=== PATIENT | male | born 1945 | race Caucasian/White ===

== ENCOUNTER → 2020-05-30 | Outpatient (CLI) | payer MEDICARE, OTHER | LOC: WOUNDCARE 08:55 | PROVIDERS: ATTEND Surgery | DX: I87.332 Chronic venous hypertension (idiopathic) with ulcer and inflammation of left lower extremity (principal); I89.0 Lymphedema, not elsewhere classified; I96 Gangrene, not elsewhere classified; I70.242 Atherosclerosis of native arteries of left leg with ulceration of calf; L97.221 Non-pressure chronic ulcer of left calf limited to breakdown of skin | CPT/HCPCS: 99204 ==

== ENCOUNTER → 2020-06-08 | Outpatient (CLI) | payer MEDICARE, OTHER | LOC: WOUNDCARE 09:30 | PROVIDERS: ATTEND Surgery | DX: I87.332 Chronic venous hypertension (idiopathic) with ulcer and inflammation of left lower extremity (principal); I89.0 Lymphedema, not elsewhere classified; L97.221 Non-pressure chronic ulcer of left calf limited to breakdown of skin; I70.242 Atherosclerosis of native arteries of left leg with ulceration of calf | CPT/HCPCS: 99212 ==

== ENCOUNTER → 2020-06-15 | Outpatient (CLI) | payer MEDICARE, OTHER | LOC: WOUNDCARE 09:11 | PROVIDERS: ATTEND Surgery | DX: I87.312 Chronic venous hypertension (idiopathic) with ulcer of left lower extremity (principal); I89.0 Lymphedema, not elsewhere classified; L97.221 Non-pressure chronic ulcer of left calf limited to breakdown of skin; I70.242 Atherosclerosis of native arteries of left leg with ulceration of calf | CPT/HCPCS: 99212 ==

== ENCOUNTER 2020-07-21 05:32 | Outpatient (RCR) | payer MEDICARE, OTHER ==
[~2020-07-21] VITALS: Ht 177.8 cm; Wt 115.8 kg
[~2020-07-21 05:32] MED LIST: AMLO-251 PO; ASPI-999 PO; ATOR40TA70 PO; CLOP75TA69 PO; HYDR25TA4 PO; METO50TA7 PO; MULT-1061 PO; POTA99TA21 PO; VITA1TAB33 PO
== END 2020-07-21 09:31 | disposition home or self-care (01) ==
LOC: PREOP 05:32
PROVIDERS: ATTEND Surgery
DX: Z01.818 Encounter for other preprocedural examination (principal); Z20.822 Contact with and (suspected) exposure to COVID-19; Z86.010 Personal history of colon polyps
CPT/HCPCS: 87635

== ENCOUNTER 2020-07-25 08:45 | Day surgery (SDC) | payer MEDICARE, OTHER ==
[~2020-07-25] VITALS: Ht 177.8 cm; Wt 115.8 kg
[2020-07-25] MEDS ORDERED: LACTATED RINGERS 1,000 ML IV ONE (08:55)
[2020-07-25] MEDS ORDERED: LACTATED RINGERS 1,000 ML IV STA (08:56)
[2020-07-25 09:10] VITALS: BP 136/77
--- NOTE | 2020-07-25 09:43 | Progress Note-Pre Operative ---
Pre-Operative Progress Note H&P Reviewed The H&P was reviewed, patient examined and no changes noted. Date Seen by Provider: Jul 25, 2020 Time Seen by Provider: 09:43 Date H&P Reviewed: Jul 25, 2020 Time H&P Reviewed: 09:43 Pre-Operative Diagnosis: hx polyps MAYANK TAYLOR DO Jul 25, 2020 09:43
[2020-07-25] MEDS ORDERED: PROPOFOL INJECTION 50 ML IV ONE ×2 (10:17→10:49)
[2020-07-25] MEDS ORDERED: MIDAZOLAM 2 MG/2 ML (VERSED) VIAL ONE (10:17)
[2020-07-25 11:10] VITALS: BP 102/55
[2020-07-25 11:15] VITALS: BP 102/53
--- NOTE | 2020-07-25 11:15 | Progress Note-Post Operative ---
Post-Operative Progess Note Surgeon (s)/Filling Station Attendant (s) Surgeon MAYANK TAYLOR DO Filling Station Attendant: na Pre-Operative Diagnosis hx polyps Post-Operative Diagnosis polyps, diverticulosis Procedure & Operative Findings Date of Procedure 07/25/20 Procedure Performed/Findings colonoscopy with hot bx polypectomy x 7 Anesthesia Type per engine room operator Estimated Blood Loss Estimated blood loss (mL): none Specimens/Packing Specimens Removed colon polyps MAYANK TAYLOR DO Jul 25, 2020 11:15
--- NOTE | 2020-07-25 11:16 | Discharge Inst-Simple/Standard ---
Discharge Inst-Standard Patient Instructions/Follow Up Plan of Care/Instructions/FU: Restart plavix and aspirin in 3 days. Activity as Tolerated: Yes Discharge Diet: Regular Diet (high fiber) MAYANK TAYLOR DO Jul 25, 2020 11:16
[2020-07-25 11:20] VITALS: BP 121/60
[2020-07-25 11:25] VITALS: BP_SYST 120; BP_SYST 124; BP_DIAS 61; BP_DIAS 65
[2020-07-25 12:05] VITALS: BP 120/65
--- NOTE | 2020-07-25 12:52 | Anesthesia-General Post-Op ---
MAC Patient Condition Mental Status/LOC: Same as Preop Cardiovascular: Satisfactory Nausea/Vomiting: Absent Respiratory: Satisfactory Pain: Controlled Complications: Absent Post Op Complications Complications None Follow Up Care/Instructions Patient Instructions None needed. Anesthesiology Discharge Order Discharge Order Patient is doing well, no complaints, stable vital signs, no apparent adverse anesthesia problems. No complications reported per nursing. FABRICIO DILLON CRNA Jul 25, 2020 12:52
--- NOTE | 2020-07-25 15:51 | OPERATIVE REPORT ---
DATE OF SERVICE: 07/25/2020 PREOPERATIVE DIAGNOSIS: History of polyps. POSTOPERATIVE DIAGNOSES: Polyps and diverticulosis. Melanosis coli. PROCEDURE: Colonoscopy with hot biopsy polypectomy x7. SURGEON: Mayank Sigala DO ANESTHESIA: Per SADDLE TREE STITCHER. ESTIMATED BLOOD LOSS: None. COMPLICATIONS: None. SPECIMENS: Colon polyps. INDICATIONS: The patient is a 75-year-old male needing colonoscopy. He understands risks and benefits of procedure and wished to proceed with procedure. Consent was signed in the chart. DESCRIPTION OF PROCEDURE: The patient was taken to the endoscopy suite, placed in left lateral recumbent position. Timeout was performed. Digital rectal exam was performed. No palpable polyps, masses or ulcerations. Scope was inserted in the rectum, noting melanosis coli and the scope was advanced all the way to the cecum noting melanosis coli the entire way. Prep was adequate with irrigation and suction. Scope was then slowly retracted back. There were no polyps, masses or ulcerations within the cecum, the ascending colon. At the hepatic flexure, polyp was present, which hot biopsy polypectomy was performed. Scope was then continued slowly retracted back. Two polyps were in the transverse colon, which hot biopsy polypectomies were performed. Scope was then continued slowly retracted back in the descending colon, another polyp was present, which hot biopsy polypectomy was performed. Scope was then continuously retracted back into the sigmoid, which demonstrated some slight diverticulosis. Also noting 3 polyps, which hot biopsy polypectomies were performed. Scope was then continuously retracted back into the rectum, where it was also retroflexed noting no other pathology. Scope was returned to its normal position, slowly withdrawn until completely removed. The patient tolerated procedure well without any complications, taken to recovery room in stable condition. RECOMMENDATIONS: The patient will need repeat colonoscopy in 3 years. Any issues before that be seen at that time. The patient will follow up in the office in pathology and discuss results. Job ID: [id number] DocumentID: [id number] Dictated Date: 07/25/2020 11:19:09 Family Service Caseworker Date: 07/25/2020 15:50:56 Dictated By: MAYANK SIGALA DO
== END 2020-07-25 12:10 | disposition home or self-care (01) ==
LOC: ENDO 08:45
PROVIDERS: ATTEND Surgery
DX: D12.3 Benign neoplasm of transverse colon (principal); D12.4 Benign neoplasm of descending colon; D12.5 Benign neoplasm of sigmoid colon; K57.30 Diverticulosis of large intestine without perforation or abscess without bleeding; I10 Essential (primary) hypertension; E66.9 Obesity, unspecified; Z68.36 Body mass index [BMI] 36.0-36.9, adult; Z79.82 Long term (current) use of aspirin; Z79.899 Other long term (current) drug therapy; Z79.02 Long term (current) use of antithrombotics/antiplatelets; Z88.5 Allergy status to narcotic agent; Z88.8 Allergy status to other drugs, medicaments and biological substances; Z86.010 Personal history of colon polyps
CPT/HCPCS: 88305

== ENCOUNTER → 2020-09-28 | Outpatient (CLI) | payer MEDICARE, OTHER | LOC: WOUNDCARE 14:09 | PROVIDERS: ATTEND Surgery | DX: I87.332 Chronic venous hypertension (idiopathic) with ulcer and inflammation of left lower extremity (principal); L97.222 Non-pressure chronic ulcer of left calf with fat layer exposed; I87.321 Chronic venous hypertension (idiopathic) with inflammation of right lower extremity; L03.116 Cellulitis of left lower limb | CPT/HCPCS: 29580; A6454; A6456; G0463 ==

== ENCOUNTER → 2020-10-04 | Outpatient (CLI) | payer MEDICARE, OTHER | LOC: WOUNDCARE 13:07 | PROVIDERS: ATTEND Surgery | DX: I87.332 Chronic venous hypertension (idiopathic) with ulcer and inflammation of left lower extremity (principal); L97.222 Non-pressure chronic ulcer of left calf with fat layer exposed; I87.321 Chronic venous hypertension (idiopathic) with inflammation of right lower extremity; L03.116 Cellulitis of left lower limb | CPT/HCPCS: 99212 ==